=== PATIENT | female | born 1930 | race Caucasian/White ===

== ENCOUNTER → 2017-07-26 | Outpatient (CLI) | payer OTHER, MEDICARE ==
[~2017-07-26] MED LIST: ADULT LOW DOSE81 MG PO; AMBIEN 5 MG TABL5 M1 PO; ATENOLOL 25MG T25 MG PO; B-100 COMPLEX1 EAC1 PO; FISH OIL 1,2001 EAC3 PO; IBUPROFEN 600600 M1 PO; LUTEIN40 MG PO; MAGNESIUM OXID200 MG; MAGNESIUM OXID200 MG PO; MULTI-VITAMIN1 EAC5 PO; OXYCODONE HCL 55 MG PO; POTASSIUM99 M1 PO
== END ==
LOC: ULTRA 12:00
DX: R22.2 Localized swelling, mass and lump, trunk (principal)

== ENCOUNTER → 2018-07-24 | Outpatient (CLI) | payer OTHER, MEDICARE | LOC: MRI 12:35 | DX: S06.0X0A Concussion without loss of consciousness, initial encounter (principal); X58.XXXA Exposure to other specified factors, initial encounter; Y93.89 Activity, other specified; Y92.89 Other specified places as the place of occurrence of the external cause; Y99.8 Other external cause status ==

== ENCOUNTER → 2018-11-20 | Outpatient (CLI) | payer OTHER, MEDICARE | LOC: ULTRA 14:57 | DX: R22.41 Localized swelling, mass and lump, right lower limb (principal) ==

== ENCOUNTER → 2019-05-16 | Outpatient (CLI) | payer OTHER | LOC: CAT 05-14 11:06 | DX: Z13.6 Encounter for screening for cardiovascular disorders (principal); I25.10 Atherosclerotic heart disease of native coronary artery without angina pectoris; E78.00 Pure hypercholesterolemia, unspecified ==

== ENCOUNTER → 2019-09-20 | Outpatient (CLI) | payer OTHER, MEDICARE | LOC: ULTRA 12:57 | DX: R22.2 Localized swelling, mass and lump, trunk (principal) ==

== ENCOUNTER 2019-12-02 14:43 | Emergency (ER) | payer OTHER, MEDICARE ==
[~2019-12-02] VITALS: Ht 142.2 cm; Wt 42.2 kg
[2019-12-02 18:07] VITALS: BP 148/93
== END 2019-12-02 18:07 | disposition home or self-care (01) ==
LOC: ER 14:43
DX: S42.291A Other displaced fracture of upper end of right humerus, initial encounter for closed fracture (principal); S09.90XA Unspecified injury of head, initial encounter; M54.2 Cervicalgia; Z90.710 Acquired absence of both cervix and uterus; Z79.82 Long term (current) use of aspirin; Z79.899 Other long term (current) drug therapy; W10.9XXA Fall (on) (from) unspecified stairs and steps, initial encounter; Y93.89 Activity, other specified; Y92.89 Other specified places as the place of occurrence of the external cause; Y99.8 Other external cause status

== ENCOUNTER 2019-12-21 12:43 | Emergency (ER) | payer OTHER, MEDICARE ==
[~2019-12-21] VITALS: Ht 142.2 cm; Wt 42.2 kg
[2019-12-21 13:49] LABS: ABSOLUTE NEUTROPHILS 5.3 thou/uL (1.4-8.2); BASOPHILS 0.7 % (0.0-2.0); EOSINOPHILS 0.4 % (0.0-3.0); HEMATOCRIT 33.4 % (37.0-47.0); HEMOGLOBIN 11.3 gm/dL (12.0-15.0); MCH 34.3 pg (26.0-34.0); PLATELET COUNT 280 thou/uL (150-400); POLYS 72.9 % (36.0-66.0); RDW 13.7 % (10.5-14.5); WBC 7.3 thou/uL (4.0-11.0)
[2019-12-21] MEDS ORDERED: MYSOLINE50 MG PO (13:50)
[2019-12-21] MEDS ORDERED: MELOXICAM15 MG PO (13:51)
[2019-12-21 14:05] LABS: ANION GAP 6 mmol/L (7-16); BUN 22 mg/dL (7-18); CALCIUM 9.3 mg/dL (8.5-10.1); CHLORIDE 97 mmol/L (98-107); CO2 29 mmol/L (21-32); CREATININE 0.7 mg/dL (0.6-1.0); GLUCOSE 119 mg/dL (74-106); POTASSIUM 3.9 mmol/L (3.5-5.1); SODIUM 132 mmol/L (136-145)
[2019-12-21 14:15] LABS: ALBUMIN 3.4 g/dL (3.4-5.0); MAGNESIUM 2.2 mg/dL (1.8-2.4); SGOT 28 U/L (15-37); SGPT 25 U/L (30-65); TOTAL BILIRUBIN 0.4 mg/dL (0.2-1.0); TOTAL PROTEIN 6.2 g/dL (6.4-8.2); TROPONIN-I <0.06 ng/mL (<0.06)
[2019-12-21 14:49] LABS: URINE BILIRUBIN NEGATIVE (Negative); URINE BLOOD NEGATIVE (Negative); URINE CLARITY CLEAR; URINE COLOR YELLOW; URINE GLUCOSE-RANDOM* NEGATIVE (Negative); URINE KETONES NEGATIVE (Negative); URINE LEUKOCYTES-REFLEX NEGATIVE (Negative); URINE NITRITE-REFLEX NEGATIVE (Negative); URINE PROTEIN (DIPSTICK) NEGATIVE (Negative); URINE UROBILINOGEN 0.2 E.U./dl (0.2-1.0)
[2019-12-21 15:34] VITALS: BP 135/70
--- NOTE | 2019-12-21 16:48 | EKG ---
[facility] [place] [address] ELECTROCARDIOGRAM REPORT Name: DIAZ MUNSON Room #: REG [facility]#: [id number] Admission: 12/21/19 Attend Phys: Discharge: Date of : 34 Report #: [id number] THIS REPORT FOR: cc: Aneesh Newton James A. DO Lundgren, Craig H. MD [facility] ~ THIS REPORT FOR: //name// [facility] ED Test Date: 2019-12-21 Test Time: 13:41:37 Pat Name: DIAZ MUNSON Department: Room: Gender: F [employer] Management Internship: : 1930 Requested By: Alex Humphrey Order Number: [id number] MD: Faizan Scott Measurements Intervals [place] Rate: 88 P: 62 [place]: 153 QRS: 42 QRSD: 83 T: 32 QT: 353 QTc: 427 Interpretive Statements Sinus rhythm Normal tracing Compared to ECG 11/25/2012 10:01:50 No significant changes Electronically Signed On 12-21-2019 16:48:33 CDT by Faizan Scott [email or web address] <ELECTRONICALLY SIGNED> By: Faizan Scott MD, FACC 12/21/19 [id number] Faizan Scott MD, [facility] /EPI
== END 2019-12-21 15:34 | disposition home or self-care (01) ==
LOC: ER 12:43
PROVIDERS: Emergency Medicine
DX: R53.1 Weakness (principal); Z90.710 Acquired absence of both cervix and uterus; Z79.899 Other long term (current) drug therapy

== ENCOUNTER 2020-01-01 18:54 | Emergency (ER) | payer OTHER, MEDICARE ==
[~2020-01-01 18:54] MED LIST changes: +MELOXICAM15 MG PO; +MYSOLINE50 MG PO
[2020-01-01 19:14] VITALS: BP 134/81
== END 2020-01-01 19:42 | disposition left against medical advice (07) ==
LOC: ER 18:54
DX: K59.00 Constipation, unspecified (principal); Z53.21 Procedure and treatment not carried out due to patient leaving prior to being seen by health care provider

== ENCOUNTER 2020-07-29 14:09 | Emergency (ER) | payer OTHER, MEDICARE ==
[~2020-07-29] VITALS: Ht 142.2 cm; Wt 40.8 kg
[2020-07-29] MEDS ORDERED: CALCIUM CARBON500 MG PO (14:19)
[2020-07-29] MEDS ORDERED: OXYCODONE HCL 55 MG PO (14:19)
[2020-07-29 15:03] LABS: ABSOLUTE NEUTROPHILS 8.2 thou/uL (1.4-8.2); BASOPHILS 0.4 % (0.0-2.0); EOSINOPHILS 0.3 % (0.0-3.0); HEMATOCRIT 38.2 % (37.0-47.0); HEMOGLOBIN 12.8 gm/dL (12.0-15.0); MCH 33.2 pg (26.0-34.0); MCHC 33.5 g/dL (28.0-37.0); MONOCYTES 7.7 % (1.0-8.0); PLATELET COUNT 277 thou/uL (150-400); POLYS 82.6 % (36.0-66.0); RBC 3.85 mil/uL (4.20-5.00); RDW 13.4 % (10.5-14.5)
[2020-07-29 15:11] LABS: CREATININE 0.9 mg/dL (0.6-1.0); POTASSIUM 4.5 mmol/L (3.5-5.1)
[2020-07-29 15:18] LABS: TOTAL BILIRUBIN 0.2 mg/dL (0.2-1.0)
[2020-07-29 15:19] LABS: BE(vivo) -1.8 mmol/L (-2 to +3); HCO3 23.3 mmol/L (22.0-26.0); PCO2 VENOUS 40.5 mmHg (41.0-51.0); PO2 VENOUS 91.3 mmHg (35.0-45.0)
--- NOTE | 2020-07-29 15:59 | EKG ---
[place] [address] [address] [place] [address] ELECTROCARDIOGRAM REPORT Name: DIAZ MUNSON Room #: [facility]#: [id number] Admission: 07/29/20 Attend Phys: Discharge: Date of : 34 Report #: [id number] [facility] ED Test Date: 2020-07-29 Test Time: 14:55:27 Pat Name: DIAZ MUNSON Department: Room: Gender: F Technical Instructor: : 1930 Requested By: Jr Grossman Order Number: [id number] MD: Williams Deras Measurements Intervals [place] Rate: 108 P: 66 [place]: 166 QRS: 61 QRSD: 89 T: 26 QT: 346 QTc: 464 Interpretive Statements Sinus tachycardia Atrial premature complexes Probable left atrial enlargement Compared to ECG 12/21/2019 13:41:37 Atrial premature complex(es) now present Sinus rhythm no longer present Electronically Signed On 07-29-2020 15:59:20 CDT by Williams Deras [email or web address] <ELECTRONICALLY SIGNED> By: Williams Deras MD, [facility] 07/29/20 1559 [id number] Williams Deras MD, FAC /EPI
[2020-07-29 16:10] LABS: URINE BILIRUBIN NEGATIVE (Negative); URINE BLOOD NEGATIVE (Negative); URINE CLARITY CLEAR; URINE COLOR YELLOW; URINE GLUCOSE-RANDOM* NEGATIVE (Negative); URINE KETONES NEGATIVE (Negative); URINE LEUKOCYTES-REFLEX NEGATIVE (Negative); URINE NITRITE-REFLEX NEGATIVE (Negative); URINE PROTEIN (DIPSTICK) NEGATIVE (Negative); URINE UROBILINOGEN 0.2 E.U./dl (0.2-1.0)
[2020-07-29 19:10] VITALS: BP 137/83
== END 2020-07-29 19:15 | disposition home or self-care (01) ==
LOC: ER 14:09
PROVIDERS: Physician Assistant
DX: E86.0 Dehydration (principal); R11.2 Nausea with vomiting, unspecified; R42 Dizziness and giddiness; R25.1 Tremor, unspecified; Z98.890 Other specified postprocedural states; Z90.711 Acquired absence of uterus with remaining cervical stump; Z79.899 Other long term (current) drug therapy